=== PATIENT | female | born 2000 | race Native Hawaiian/Other Pacific Islander ===

== ENCOUNTER 2022-10-21 20:18 | Emergency (ER) | payer OTHER ==
[~2022-10-21] VITALS: Ht 162.6 cm; Wt 81.8 kg
[2022-10-21 20:30] VITALS: BP 120/63; TEMP 97.3
== END 2022-10-21 23:10 | disposition home or self-care (01) ==
LOC: ED 20:18
DX: G43.909 Migraine, unspecified, not intractable, without status migrainosus (principal)
CPT/HCPCS: 80307; 96372; 99283; J1885; J2270